=== PATIENT | male | born 1965 | race Two or more races ===

== ENCOUNTER 2017-10-25 19:50 | Observation (INO) | payer BC, OTHER ==
[~2017-10-25] VITALS: Ht 170.2 cm; Wt 79.8 kg
[2017-10-25 21:12] LABS: Basophils # (auto) 0 uL; Basophils % (auto) 0.8 % (0.0-2.0); Eosinophils # (auto) 0.3 uL; Eosinophils % (auto) 4.3 % (0.0-7.0); Hematocrit 45.3 % (41.0-53.0); Hemoglobin 15.8 g/dL (13.5-17.5); Lymphocytes # (auto) 2.3 uL; Lymphocytes % (auto) 39.3 % (10.0-50.0); Mean Corpuscular Hemoglobin 31.1 pg (28.0-32.0); Mean Corpuscular Hgb Conc. 34.9 g/dL (32.0-36.0); Mean Corpuscular Volume 89.1 fL (80.0-100.0); Monocytes # (auto) 0.6 uL; Monocytes % (auto) 9.8 % (0.0-12.0); Neutrophils # (auto) 2.7 uL; Neutrophils % (auto) 45.8 % (37.0-80.0); Nucleated Red Blood Cells % 0.2 %; Platelet Count (auto) 220 10^3/uL (140-450); Red Blood Cells 5.08 10^6/uL (4.5-5.90); Red Cell Distribution Width 12.2 % (11.8-14.3)
[2017-10-25 21:31] LABS: BUN/Creatinine Ratio 13.3; Bilirubin, Total 0.4 mg/dL (0.2-1.0); Calcium 9.1 mg/dL (8.5-10.1); Magnesium 2.5 mg/dL (1.6-2.6); Potassium 3.5 mmol/L (3.5-5.1); Total Protein 7.6 g/dL (6.4-8.2)
[2017-10-25] MEDS ORDERED: LORazepam 0.5 MG TAB PO ONE (23:15)
[2017-10-25 23:22] LABS: INR 0.96 (0.9-1.15)
[2017-10-26 00:41] VITALS: BP 115/81
== END 2017-10-26 00:46 | disposition home or self-care (01) | DRG 880 ==
LOC: ER 19:50 → OVERFLOW 19:51 → ER 10-26 00:46
PROVIDERS: ADMIT Emergency Medicine; ATTEND Emergency Medicine
DX: F41.9 Anxiety disorder, unspecified (principal); J98.11 Atelectasis; I15.9 Secondary hypertension, unspecified; E78.5 Hyperlipidemia, unspecified
CPT/HCPCS: 36415; 71045; 80053; 83735; 83880; 84443; 84484; 85025; 85379; 85610; 85730; 93005; 99285; G0378

== ENCOUNTER 2018-05-17 18:20 | Emergency (ER) | payer BC ==
[~2018-05-17] VITALS: Ht 160 cm; Wt 81.6 kg
[2018-05-17] MEDS ORDERED: ACETAMINOPHEN/CODEINE#3 (300/30mg) TAB PO ONE (20:45)
[2018-05-17] MEDS ORDERED: methylPREDNISolone SOD SUCC 125 MG/2 ML VL IM ONE (20:45)
[2018-05-17] MEDS ORDERED: cefTRIAXone SOD 1,000 MG VL IM ONE (20:45)
[2018-05-17 21:28] VITALS: BP 137/98
== END 2018-05-17 21:32 | disposition home or self-care (01) ==
LOC: ER 18:33
DX: J06.9 Acute upper respiratory infection, unspecified (principal); E78.5 Hyperlipidemia, unspecified
CPT/HCPCS: 71046; 96372; 99283; J0696; J2930

== ENCOUNTER 2019-08-04 12:32 | Inpatient (IN) | payer BC, OTHER ==
[~2019-08-04] VITALS: Ht 177.8 cm; Wt 77.3 kg
[2019-08-04] MEDS ORDERED: ASPirin 81 mg TAB PO ONE (13:00)
[2019-08-04 13:07] LABS: Basophils # (auto) 0 10 ^3/uL (0-0.2); Basophils % (auto) 0.5 % (0.0-2.0); Eosinophils # (auto) 0.1 10 ^3/uL (0-0.8); Eosinophils % (auto) 1.2 % (0.0-7.0); Hematocrit 45.9 % (41.0-53.0); Hemoglobin 15.5 g/dL (13.5-17.5); Lymphocytes # (auto) 1.7 10 ^3/uL (0.4-5.4); Lymphocytes % (auto) 20.6 % (10.0-50.0); Mean Corpuscular Hemoglobin 29.9 pg (28.0-32.0); Mean Corpuscular Hgb Conc. 33.9 g/dL (32.0-36.0); Mean Corpuscular Volume 88.2 fL (80.0-100.0); Monocytes # (auto) 0.7 10 ^3/uL (0-1.3); Monocytes % (auto) 7.9 % (0.0-12.0); Neutrophils # (auto) 5.8 10 ^3/uL (1.6-8.6); Neutrophils % (auto) 69.8 % (37.0-80.0); Nucleated Red Blood Cells % 0.2 %; Platelet Count (auto) 210 10^3/uL (140-450); Red Cell Distribution Width 12.4 % (11.8-14.3); White Blood Cell 8.3 10^3/uL (4.4-10.8)
[2019-08-04 13:29] LABS: Albumin 4.1 g/dL (3.4-5.0); Calcium 8.8 mg/dL (8.5-10.1); Potassium 3.4 mmol/L (3.5-5.1)
[2019-08-04 13:35] LABS: BUN/Creatinine Ratio 10.2; Bilirubin, Total 0.6 mg/dL (0.2-1.0); Total Protein 7.8 g/dL (6.4-8.2)
[2019-08-04] MEDS ORDERED: POTASSIUM CHL 20 Meq TABLET PO ONE (14:15)
[2019-08-04] MEDS ORDERED: NITROGLYCERIN 0.4 MG SL TAB SL PRN (14:15)
[2019-08-04] MEDS ORDERED: hydrALAZINE HCL 20 MG/ML VL IV PRN (14:15)
[2019-08-04] MEDS ORDERED: ACETAMINOPHEN 500 MG TAB PO PRN (14:15)
[2019-08-04] MEDS ORDERED: MORPHINE SULF INJ 2 MG/ML SYRINGE 1ML IV PRN ×2 (14:15)
[2019-08-04] MEDS ORDERED: HYDROcodone-ACET 5/325MG TAB PO PRN (14:15)
[2019-08-04] MEDS ORDERED: ONDANSETRON HCL 4 MG/2 ML VIAL IV PRN (14:15)
[2019-08-04 17:32] LABS: CRP High Sensitivity 0.95 mg/dL (< 0.3)
[2019-08-04 21:00] VITALS: BP 137/95
[2019-08-04] MEDS: METOPROLOL TARTRATE 25 MG TAB PO SCH (23:06)
[2019-08-04] MEDS: ATORVASTATIN 20 MG TAB PO SCH (23:06)
[2019-08-05] MEDS ORDERED: SIMV-13 PO (00:33)
[2019-08-05] MEDS ORDERED: ASPI81CH43 PO (00:33)
[2019-08-05 05:00] VITALS: BP 118/80
[2019-08-05 06:08] LABS: Basophils # (auto) 0 10 ^3/uL (0-0.2); Basophils % (auto) 0.9 % (0.0-2.0); Eosinophils # (auto) 0.2 10 ^3/uL (0-0.8); Eosinophils % (auto) 3.8 % (0.0-7.0); Hematocrit 48.1 % (41.0-53.0); Hemoglobin 16.4 g/dL (13.5-17.5); Lymphocytes # (auto) 1.6 10 ^3/uL (0.4-5.4); Mean Corpuscular Hemoglobin 29.9 pg (28.0-32.0); Mean Corpuscular Volume 87.9 fL (80.0-100.0); Monocytes # (auto) 0.4 10 ^3/uL (0-1.3); Monocytes % (auto) 9.8 % (0.0-12.0); Neutrophils # (auto) 2.4 10 ^3/uL (1.6-8.6); Neutrophils % (auto) 51.5 % (37.0-80.0); Nucleated Red Blood Cells % 0.3 %; Platelet Count (auto) 197 10^3/uL (140-450); Red Blood Cells 5.47 10^6/uL (4.5-5.90); Red Cell Distribution Width 12.5 % (11.8-14.3); White Blood Cell 4.6 10^3/uL (4.4-10.8)
[2019-08-05 06:22] LABS: INR 1.03 (0.9-1.15); Partial Thromboplastin Time 28.6 sec (23.64-32.05)
[2019-08-05 06:25] LABS: Calcium 8.7 mg/dL (8.5-10.1); Potassium 3.8 mmol/L (3.5-5.1)
[2019-08-05 06:27] LABS: BUN/Creatinine Ratio 14.1
[2019-08-05 09:00] VITALS: BP 138/89
[2019-08-05] MEDS ORDERED: ADENOSINE 65 MG in GIVE UN-DILUTED 0 ML IV STA (10:05)
[2019-08-05 11:23] VITALS: BP 164/102
[2019-08-05] MEDS: ASPirin-EC 81 mg tab PO SCH (15:31)
[2019-08-05] MEDS: METOPROLOL TARTRATE 25 MG TAB PO SCH ×2 (15:31→22:00)
[2019-08-05] MEDS: LISINOPRIL 10 MG TAB PO SCH (15:32)
[2019-08-05] MEDS: FAMOTIDINE 20 MG TAB PO SCH (15:32)
[2019-08-05 16:35] VITALS: BP 137/96
[2019-08-05 22:00] VITALS: BP 106/65
[2019-08-05] MEDS: ATORVASTATIN 20 MG TAB PO SCH (23:19)
[2019-08-06 05:00] VITALS: BP 119/74
[2019-08-06 07:29] LABS: Basophils # (auto) 0.1 10 ^3/uL (0-0.2); Basophils % (auto) 1.2 % (0.0-2.0); Eosinophils # (auto) 0.1 10 ^3/uL (0-0.8); Eosinophils % (auto) 2.4 % (0.0-7.0); Hematocrit 50.6 % (41.0-53.0); Lymphocytes # (auto) 1.8 10 ^3/uL (0.4-5.4); Lymphocytes % (auto) 32.8 % (10.0-50.0); Mean Corpuscular Hemoglobin 29.8 pg (28.0-32.0); Mean Corpuscular Hgb Conc. 33.7 g/dL (32.0-36.0); Mean Corpuscular Volume 88.4 fL (80.0-100.0); Monocytes # (auto) 0.4 10 ^3/uL (0-1.3); Monocytes % (auto) 7.8 % (0.0-12.0); Neutrophils % (auto) 55.8 % (37.0-80.0); Nucleated Red Blood Cells % 0.2 %; Platelet Count (auto) 208 10^3/uL (140-450); Red Blood Cells 5.72 10^6/uL (4.5-5.90); White Blood Cell 5.4 10^3/uL (4.4-10.8)
[2019-08-06 07:50] LABS: BUN/Creatinine Ratio 16.5; Potassium 3.9 mmol/L (3.5-5.1)
[2019-08-06 08:00] VITALS: BP 136/91
[2019-08-06] MEDS: METOPROLOL TARTRATE 25 MG TAB PO SCH (10:52)
[2019-08-06] MEDS: ASPirin-EC 81 mg tab PO SCH (10:52)
[2019-08-06] MEDS: FAMOTIDINE 20 MG TAB PO SCH (10:53)
[2019-08-06] MEDS: LISINOPRIL 10 MG TAB PO SCH (10:53)
[2019-08-06 12:00] VITALS: BP 128/77
[2019-08-06 17:00] VITALS: BP 126/86
[2019-08-06 17:35] VITALS: BP 126/86
== END 2019-08-06 18:38 | disposition home or self-care (01) | DRG 205 ==
LOC: ER 12:32 → TELE 12:33 → TELE-WESTW 20:45
PROVIDERS: ADMIT Nurse Practitioner Acute Care; ATTEND Internal Medicine
DX: M94.0 Chondrocostal junction syndrome [Tietze] (principal); N17.0 Acute kidney failure with tubular necrosis; E87.6 Hypokalemia; E78.5 Hyperlipidemia, unspecified; N18.9 Chronic kidney disease, unspecified; I12.9 Hypertensive chronic kidney disease with stage 1 through stage 4 chronic kidney disease, or unspecified chronic kidney disease; F41.9 Anxiety disorder, unspecified; Z80.0 Family history of malignant neoplasm of digestive organs
CPT/HCPCS: 36415; 71045; 78452; 80048; 80053; 80061; 83735; 83880; 84443; 84484; 85025; 85379; 85610; 85730; 86141; 93005; 93017; 93306; G0378; J0153

== ENCOUNTER 2024-10-24 12:09 | Emergency (ER) | payer OTHER ==
[~2024-10-24] VITALS: Ht 167.6 cm; Wt 79.5 kg
[~2024-10-24 12:09] MED LIST: ASPI81CH43 PO; SIMV40TA18 PO
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
[2024-10-24] MEDS: ACETAMINOPHEN 500 MG TAB or CAP PO ONE (13:39)
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
[2024-10-24 14:12] VITALS: BP 129/85; PULSE 63; RESP 18; TEMP 98.2; O2SAT 94
[2024-10-24] MEDS ORDERED: IBUP-1456 PO (14:12)
[2024-10-24] MEDS ORDERED: METH-1182 PO (14:12)
== END 2024-10-24 14:14 | disposition home or self-care (01) ==
LOC: EDBD 12:09 → ER 12:15
DX: S29.012A Strain of muscle and tendon of back wall of thorax, initial encounter (principal); S20.219A Contusion of unspecified front wall of thorax, initial encounter; S60.212A Contusion of left wrist, initial encounter; S60.211A Contusion of right wrist, initial encounter; E78.5 Hyperlipidemia, unspecified; Z79.82 Long term (current) use of aspirin; Z79.899 Other long term (current) drug therapy; V43.52XA Car driver injured in collision with other type car in traffic accident, initial encounter; Y93.89 Activity, other specified; Y92.89 Other specified places as the place of occurrence of the external cause; Y99.8 Other external cause status
CPT/HCPCS: 71046; 72070